=== PATIENT | male | born 2005 | race Caucasian/White ===

== ENCOUNTER 2023-07-10 19:24 | Emergency (ER) | payer BC ==
[~2023-07-10] VITALS: Ht 182.9 cm; Wt 68.0 kg
[2023-07-10] MEDS ORDERED: diphenhydrAMINE 50 MG/1 ML VIAL ONE (19:39)
[2023-07-10] MEDS ORDERED: predniSONE 20 MG TABLET ONE (19:39)
[2023-07-10] MEDS ORDERED: diphenhydrAMINE 50 MG/1 ML VIAL IM ONE (19:45)
[2023-07-10] MEDS ORDERED: predniSONE 20 MG TABLET PO ONE (19:45)
[2023-07-10] MEDS ORDERED: methylPREDNISolone SOD SUCC 125 MG/2 ML VIAL ONE (19:49)
[2023-07-10] MEDS ORDERED: diphenhydrAMINE 50 MG/1 ML VIAL IV ONE (20:00)
[2023-07-10] MEDS ORDERED: methylPREDNISolone SOD SUCC 125 MG/2 ML VIAL IV ONE (20:00)
[2023-07-10] MEDS ORDERED: PRED20TA PO (21:29)
[2023-07-10] MEDS ORDERED: DIPH25CA83 PO (21:29)
[2023-07-10] MEDS ORDERED: EPIN0.3P3 IM (21:29)
[2023-07-10 23:03] VITALS: BP 121/78; TEMP 98.3; O2SAT 98
== END 2023-07-10 23:04 | disposition home or self-care (01) ==
LOC: ER 19:30
DX: T78.3XXA Angioneurotic edema, initial encounter (principal); T78.1XXA Other adverse food reactions, not elsewhere classified, initial encounter; Z79.899 Other long term (current) drug therapy; X58.XXXA Exposure to other specified factors, initial encounter
CPT/HCPCS: 99284; 96374; 96375; 93005; J7512; J1200; J2930; A4606; A4663